=== PATIENT | female | born 1950 | race Caucasian/White ===

== ENCOUNTER → 2022-02-17 08:38 | Outpatient (BNVA) | payer MEDICARE, SELFPAY | PROVIDERS: PCP Internal Medicine; Visit Provider Internal Medicine Rheumatology | DX: Z87.39 Personal history of other diseases of the musculoskeletal system and connective tissue (principal); H81.10 Benign paroxysmal vertigo, unspecified ear; Z79.899 Other long term (current) drug therapy; H26.9 Unspecified cataract; J96.11 Chronic respiratory failure with hypoxia; M26.649 Arthritis of unspecified temporomandibular joint; Z86.16 Personal history of COVID-19 | CPT/HCPCS: 99204 ==

== ENCOUNTER 2022-02-17 10:28 | Outpatient (CLI) | payer MEDICARE, SELFPAY ==
--- NOTE | 2022-02-17 11:09 | XRR_ITS ---
PROCEDURE INFORMATION: Exam: XR Right Hip Exam date and time: 02/17/2022 11:36 AM Age: 71 years old Clinical indication: Pain and injury or trauma; Fall; Blunt trauma (contusions or hematomas); Right hip; Injury details: RT hip pain PT fell 2 months ago; Prior surgery; Surgery type: L spine; Additional info: Z79.899 - other prison (current) drug therapy TECHNIQUE: Imaging protocol: XR Right hip. Views: 1 view hip with pelvis when performed. COMPARISON: No relevant prior studies available. FINDINGS: Bones/joints: Negative for fracture. Joint space is preserved. Soft tissues: Unremarkable. XR/XR hip RT 2-3V wo/w pel* [id number] IMPRESSION: Unremarkable radiographs of the right hip.
[2022-02-17 11:34] LABS: Erythrocyte Sedimentation Rate 25 mm/hr (0-15)
[2022-02-17 11:59] LABS: C Reactive Protein 3.1 mg/L (0.0-4.9)
[2022-02-17 12:34] LABS: 25 Hydroxy Vitamin D > 100 ng/mL (30-100)
[2022-02-18 12:38] LABS: COMPLEMENT COMPONENT C3C 140 mg/dL (83-193); COMPLEMENT COMPONENT C4C 32 mg/dL (15-57)
[2022-02-18 13:07] LABS: CENTROMERE B ANTIBODY <1.0 NEG AI (<1.0 NEG); JO-1 ANTIBODY <1.0 NEG AI (<1.0 NEG); RNP ANTIBODY <1.0 NEG AI (<1.0 NEG); SCL-70 ANTIBODY <1.0 NEG AI (<1.0 NEG); SJOGREN'S ANTIBODY (SS-A) >8.0 POS AI (<1.0 NEG); SM ANTIBODY <1.0 NEG AI (<1.0 NEG); SS-B <1.0 NEG AI (<1.0 NEG)
[2022-02-18 15:12] LABS: Cyclic Citrullinated Peptide <16 UNITS
[2022-02-18 15:18] LABS: THYROID PEROXIDASE ANTIBODIES <1 IU/mL (<9); Thyroglobulin AB <1 IU/mL (< or = 1)
[2022-02-19 12:22] LABS: COMPLEMENT, TOTAL (CH50) >60 U/mL (31-60)
[2022-02-19 13:13] LABS: ANA PATTERN Nuclear, Speckled; ANA SCREEN, IFA POSITIVE (NEGATIVE)
[2022-02-19 13:57] LABS: ANCA Screen NEGATIVE (NEGATIVE)
[2022-02-19 15:03] LABS: DNA AB (DS) CRITHIDIA,IFA NEGATIVE (NEGATIVE)
== END 2022-02-17 10:29 | disposition home or self-care (01) ==
PROVIDERS: PCP Internal Medicine; Visit Provider Internal Medicine Rheumatology
DX: Z79.899 Other long term (current) drug therapy (principal); M19.90 Unspecified osteoarthritis, unspecified site; M35.3 Polymyalgia rheumatica; R76.8 Other specified abnormal immunological findings in serum; M25.559 Pain in unspecified hip
CPT/HCPCS: 36415; 73502; 82306; 83516; 85651; 86140; 86160; 86162; 86200; 86235; 86255; 86376; 86431; 86800

== ENCOUNTER → 2022-03-31 13:17 | Outpatient (BNVA) | payer MEDICARE, SELFPAY | PROVIDERS: PCP Internal Medicine; Referring Provider Internal Medicine Rheumatology; Visit Provider Nurse Practitioner | DX: R53.1 Weakness (principal); R26.89 Other abnormalities of gait and mobility; H02.402 Unspecified ptosis of left eyelid; R41.89 Other symptoms and signs involving cognitive functions and awareness | CPT/HCPCS: 99204 ==

== ENCOUNTER → 2022-05-05 09:36 | Outpatient (BNVA) | payer MEDICARE, SELFPAY | PROVIDERS: PCP Internal Medicine; Visit Provider Internal Medicine Rheumatology | DX: J84.9 Interstitial pulmonary disease, unspecified (principal); J96.11 Chronic respiratory failure with hypoxia; R76.8 Other specified abnormal immunological findings in serum; Z87.39 Personal history of other diseases of the musculoskeletal system and connective tissue; Z79.899 Other long term (current) drug therapy; Z86.16 Personal history of COVID-19 | CPT/HCPCS: 99214; 99215 ==

== ENCOUNTER → 2022-05-06 10:30 | Outpatient (BNVA) | payer MEDICARE, SELFPAY | PROVIDERS: PCP Internal Medicine; Visit Provider Specialist | DX: R41.0 Disorientation, unspecified (principal); R26.89 Other abnormalities of gait and mobility | CPT/HCPCS: 95816 ==

== ENCOUNTER 2022-05-19 08:03 | Outpatient (CLI) | payer MEDICARE, SELFPAY ==
--- NOTE | 2022-05-19 08:00 | MR_ITS ---
WS: [id number] MRI BRAIN WITH AND WITHOUT CONTRAST HISTORY: R26.9 - Unspecified abnormalities of gait and mobility COMPARISON: None available. TECHNIQUE: Multiplanar imaging performed through the brain with MultiHance 17 ml's IV. No acute infarcts are seen. Jules-white matter differentiation is well preserved. Moderate bilateral p eriventricular and subcortical white matter T2 and FLAIR signal hyperintensities. Additional bilatera l ischemic changes in the kostas. No large territory infarct. No hemorrhage. No susceptibility artifacts or prior lacunar infarcts. Ventricles and extra-axial spaces are normal. Clivus and pituitary gland are normal. Postcontrast images are negative for masses or vascular malformations. Small caliber RIGHT vertebral artery. Dural venous sinuses are normal. Paranasal sinuses: No air-fluid levels. Small polyps or mucous retention cysts in the maxillary sinus es. Mastoid air cells: Small LEFT mastoid air cell effusion. Calvarium and scalp: Normal. MR/MR head wo/w con [id number] IMPRESSION: 1. No acute infarct or enhancing mass. 2. Moderate small vessel ischemic disease in the periventricular subcortical w elda matter and also the kostas bilaterally.
[2022-05-19 10:19] LABS: Erythrocyte Sedimentation Rate 7 mm/hr (0-15)
[2022-05-19 10:50] LABS: Creatine Phosphokinase 37 U/L (26-192); Magnesium 2.3 mg/dL (1.7-2.3); Phosphorus 3.4 mg/dL (2.5-4.5); Potassium 3.9 mmol/L (3.5-5.1); Vitamin B12 489 pg/mL (232-1245)
[2022-05-24 00:33] LABS: Acetylcholine Receptor Binding <0.30 nmol/L
[2022-05-24 19:03] LABS: Acetylcholine Receptor Block <15 (<15)
[2022-05-27 17:47] LABS: Acetylcholine Recept Modulatin 10
[2022-05-27 22:44] LABS: Striated Muscle AB Screen NEGATIVE (NEGATIVE)
== END 2022-05-19 08:04 | disposition home or self-care (01) ==
PROVIDERS: Internal Medicine Rheumatology; PCP Internal Medicine; Visit Provider Nurse Practitioner
DX: R26.9 Unspecified abnormalities of gait and mobility (principal); R53.1 Weakness; Z79.899 Other long term (current) drug therapy; Z87.39 Personal history of other diseases of the musculoskeletal system and connective tissue
CPT/HCPCS: 70553; 82550; 82607; 83516; 83519; 83735; 84100; 84132; 85651; 86140; 86255

== ENCOUNTER → 2022-06-09 12:56 | Outpatient (BNVA) | payer MEDICARE, SELFPAY | PROVIDERS: PCP Radiology Neuroradiology; Visit Provider Internal Medicine Pulmonary Disease | DX: J84.9 Interstitial pulmonary disease, unspecified (principal); J96.11 Chronic respiratory failure with hypoxia; J98.4 Other disorders of lung; R76.8 Other specified abnormal immunological findings in serum; U09.9 Post COVID-19 condition, unspecified; Z87.39 Personal history of other diseases of the musculoskeletal system and connective tissue; Z99.81 Dependence on supplemental oxygen | CPT/HCPCS: 99204 ==

== ENCOUNTER → 2022-07-01 08:07 | Outpatient (BNVA) | payer MEDICARE, SELFPAY | PROVIDERS: PCP Radiology Neuroradiology; Referring Provider Nurse Practitioner; Visit Provider Specialist | DX: R41.0 Disorientation, unspecified (principal); R41.3 Other amnesia | CPT/HCPCS: 95812; 95816 ==

== ENCOUNTER → 2022-07-21 10:01 | Outpatient (BNVA) | payer MEDICARE, SELFPAY | PROVIDERS: PCP Radiology Neuroradiology; Visit Provider Nurse Practitioner | DX: R53.1 Weakness (principal); J84.9 Interstitial pulmonary disease, unspecified; M54.9 Dorsalgia, unspecified; Z99.81 Dependence on supplemental oxygen | CPT/HCPCS: 99213 ==

== ENCOUNTER → 2022-08-11 13:25 | Outpatient (BNVA) | payer MEDICARE, SELFPAY | PROVIDERS: PCP Radiology Neuroradiology; Visit Provider Internal Medicine Pulmonary Disease | DX: U09.9 Post COVID-19 condition, unspecified; J98.4 Other disorders of lung; J84.9 Interstitial pulmonary disease, unspecified; R76.8 Other specified abnormal immunological findings in serum; J96.11 Chronic respiratory failure with hypoxia; Z87.39 Personal history of other diseases of the musculoskeletal system and connective tissue; Z99.81 Dependence on supplemental oxygen | CPT/HCPCS: 99214 ==

== ENCOUNTER → 2022-09-01 10:37 | Outpatient (BNVA) | payer MEDICARE, SELFPAY | PROVIDERS: PCP Radiology Neuroradiology; Visit Provider Internal Medicine Rheumatology | DX: R76.8 Other specified abnormal immunological findings in serum (principal); J84.9 Interstitial pulmonary disease, unspecified; J96.11 Chronic respiratory failure with hypoxia; J98.4 Other disorders of lung; Z86.16 Personal history of COVID-19; M25.512 Pain in left shoulder | CPT/HCPCS: 99214 ==

== ENCOUNTER 2022-09-04 16:58 | Outpatient (CLI) | payer MEDICARE, SELFPAY ==
--- NOTE | 2022-09-04 17:00 | CT_ITS ---
WS: [id number] CT CHEST TECHNIQUE: Noncontrast CT of the chest with coronal and sagittal reformatted images. CLINICAL INFORMATION: HRCT for interstitial lung disease COMPARISON: CTA chest February 01, 2022 DLP: 2690.[address] scans at [facility] use at least one of these dose optimization techniques: automated e xposure control; mA and/or kV adjustment per patient size (includes targeted exams where dose is matc hed to clinical indication); or iterative reconstruction. FINDINGS: Moderate chronic emphysematous changes. No acute pulmonary infiltrates. No focal pneumonia or pleural fluid.Interstitial reticular opacities with mild subpleural honeycombing. Mild traction bronchiectas is. Mild air trapping on the expiratory images. A few calcified granulomas. Cardiomegaly. Normal caliber thoracic aorta. Mild aortic calcification. A few prominent AP window and peribronchial lymph nodes nonspecific but likely reactive. No axillary lymphadenopathy. Partially visualized LEFT renal cyst measuring 5.7 CM. Fatty atrophy of the pancreas. Adrenal glands are normal. Small peripher ally calcified splenic artery aneurysm measuring 10 mm. Small esophageal hiatal hernia. No other susp icious findings. CT/CT chest wo con [id number] IMPRESSION: 1. Bilateral reticular opacities with mild/early subpleural honeycombing and m ild traction bronchiectasis can be seen with idiopathic pulmonary fibrosis in a ppropriate clinical setting. 2. Mild air trapping on expiratory images. 3. A few slightly prominent AP window and peribronchial lymph nodes likely ammon ctive. 4. Small esophageal hiatal hernia. 5. 10 mm peripherally calcified splenic artery aneurysm unchanged since February 01, 2022. 6. No other suspicious findings.
== END 2022-09-04 16:59 | disposition home or self-care (01) ==
LOC: RAD 16:59
PROVIDERS: PCP Radiology Neuroradiology; Visit Provider Internal Medicine Pulmonary Disease
DX: J84.9 Interstitial pulmonary disease, unspecified (principal)
CPT/HCPCS: 71250

== ENCOUNTER 2022-09-24 13:40 | Outpatient (CLI) | payer MEDICARE, SELFPAY | END 2022-09-24 13:41 | disposition home or self-care (01) | LOC: RT 13:43 | PROVIDERS: PCP Radiology Neuroradiology; Visit Provider Internal Medicine Pulmonary Disease | DX: J84.9 Interstitial pulmonary disease, unspecified (principal); J96.11 Chronic respiratory failure with hypoxia | CPT/HCPCS: 94060; 94618; 94726; 94729; J7611 ==

== ENCOUNTER 2022-10-09 12:00 | Outpatient (CLI) | payer MEDICARE, SELFPAY | END 2022-10-09 12:01 | disposition home or self-care (01) | LOC: SLEEP 10-13 07:43 | PROVIDERS: PCP Radiology Neuroradiology; Visit Provider Internal Medicine Pulmonary Disease | DX: J84.9 Interstitial pulmonary disease, unspecified (principal); J96.11 Chronic respiratory failure with hypoxia | CPT/HCPCS: 94762 ==

== ENCOUNTER 2023-01-17 13:19 | Observation (INO) | payer MEDICARE, SELFPAY ==
[2023-01-17] VITALS (12 sets, daily range): BP systolic 129–187; BP diastolic 77–109; PULSE 73–85; RESP 15–18; TEMP 36.1–36.8; O2SAT 94–100
--- NOTE | 2023-01-17 13:49 | CTR_ITS ---
PROCEDURE INFORMATION: Exam: CT Abdomen And Pelvis Without Contrast Exam date and time: 01/17/2023 2:16 PM Age: 72 years old Clinical indication: Abdominal pain; Flank; Right; Prior surgery; Surgery type: Hyster, lumbar; Additional info: Eval stone TECHNIQUE: Imaging protocol: Computed tomography of the abdomen and pelvis without contrast. Radiation optimization: All CT scans at this facility use at least one of these dose optimization techniques: automated exposure control; mA and/or kV adjustment per patient size (includes targeted exams where dose is matched to clinical indication); or iterative reconstruction. Other protocol: This patient has received 2 known CTs and 0 known cardiac nuclear medicine studies in the 12 months prior to the current study. COMPARISON: CR XR hip RT 2-3V wo/w pel* [id number] 02/17/2022 11:36 AM RADIATION DOSE METRICS: Total DLP (mGy-cm): 577.93 FINDINGS: Liver: Normal. No mass. Gallbladder and bile ducts: Normal. No calcified stones. No ductal dilation. Pancreas: Normal. No ductal dilation. Spleen: Normal. No splenomegaly. Adrenal glands: Normal. No mass. Kidneys and ureters: There are cysts with benign features in the left kidney the larger of which measures 5.6 cm in the transverse dimension. Follow-up is not necessary. 9 mm calculus in the lower pole the left kidney. There is a 4 mm x 5 mm calculus in the proximal left ureter.Mild to moderate hydronephrosis/hydroureter and associated inflammatory stranding. There are punctate nonobstructing right renal calculi. Stomach and bowel: There is diverticulosis of the colon without evidence of diverticulitis. Appendix: A normal appendix is identified. Intraperitoneal space: Unremarkable. No free air. No significant fluid collection. Vasculature: Unremarkable. No abdominal aortic aneurysm. Lymph nodes: Unremarkable. No enlarged lymph nodes. Urinary bladder: Unremarkable as visualized. Reproductive: The uterus is not visualized, consistent with hysterectomy. Bones/joints: Unremarkable. No acute fracture. Soft tissues: Unremarkable. CT/CT kidney stone [id number] IMPRESSION: 1. There is a 4 mm x 5 mm calculus in the proximal left ureter with obstructive changes as described above. 2. 9 mm calculus in a lower pole calyx of the left kidney.
--- NOTE | 2023-01-17 13:49 | PC.NURSE ---
pt reports left flank pain x7 days but severe pain began 3 days ago. describes pain as stabbing or a muscle spasm and intermittent. Denies symptoms, was told she was told her had bacteria and blood in her urine. Was seen [facility] 01/14. Reports they did the urine sample but did not do any imaging. pt reports hx of kidney stones
--- NOTE | 2023-01-17 13:52 | ED_ITS ---
HPI - Back Pain/Injury General: Chief Complaint: Back Pain/Injury Stated Complaint: possible kidney stone Time Seen by Provider: 01/17/23 13:41 History of Present Illness: 72-year-old female past medical history of recurrent urinary tract infections, COPD, and remote history of nephrolithiasis on the left presenting to the emergency department complaining of left flank pain. Patient states she was treated 1 week ago in [place] for urinary tract infection with oral penicillin after her urine indicated urinary tract affection. She has been taking medication for symptoms have not been improving. She presents today with worsened flank pain that is squeezing in nature, radiating to her groin and lower area above her left back. Has not taken anything to improve her symptoms. No positions improve her symptoms. Denies fevers, sweats, chills. Associated symptoms: Reports nausea; Deny chills, fever(s) or vomiting Review of Systems General: Reports: 10 or more systems reviewed and unremarkable except in HPI and below Const: Denies: fever(s) or chills Eyes: Denies: change in vision or blurry vision ENMT: Denies: throat pain or uvular edema Card: Denies: chest pain or palpitations Resp: Denies: dyspnea or productive cough GI: Reports: nausea; Denies: vomiting or constipation : Reports: flank pain and urinary frequency Musc: Reports: back pain; Denies: neck pain Skin/Breast: Denies: rash or pruritus Neuro: Denies: headache(s) Psych: Denies: anxiety or depression PFSH ED PFSH: Medical History Acute anxiety Balance disorder BPPV (benign paroxysmal positional vertigo) History of COPD History of ear infections as a child Hx of polymyalgia rheumatica Hypertension Hypoxemic respiratory failure, chronic Hx of Covid 19 Hypoxemic respiratory failure, chronic ILD (interstitial lung disease) likely secondary her COVID 19 infection? 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 Transient confusion Urolithiasis Vasculitis Visual disturbance Surgical History History of hysterectomy with bilateral oophorectomy Previous back surgery x2 Family History Sister Lung disease 2021 ILD Father Cancer Denies family history of Rheumatoid arthritis Lupus Social History Smoking and tobacco status: never smoked Alcohol intake: never Physical Exam Const: COMMON NORMALS: no acute distress EXAM LIMITATIONS: no altered mental status and no behavioral limitations HENMT: COMMON NORMALS: normocephalic and atraumatic HEAD & SCALP: normocephalic and atraumatic THROAT: no uvular edema Eye: COMMON NORMALS: Equal, round and reactive pupils present and EOMs intact bilaterally PUPIL: Yes Equal, round and reactive pupils present Neck/C-Spine: COMMON NORMALS: full ROM and supple Chest: COMMONS NORMALS: normal inspection of the chest and normal palpation of entire chest wall Resp: COMMON NORMALS: normal respiratory effort, No retractions and No use of accessory muscles Cardio: COMMON NORMALS: regular rate and regular rhythm RATE: regular rate RHYTHM: regular rhythm GI: COMMON NORMALS: Normal to inspection, nondistended, normoactive bowel sounds present and Soft to palpation PALPATION: Yes Soft to palpation and Yes Tenderness to palpation present (GI) Details: other (Suprapubic) : COMMON NORMALS: No no CVA tenderness BLADDER/KIDNEY EXAM: No no CVA tenderness and Yes CVA tenderness on the left Back/Pelvis: COMMON NORMALS: negative for no CVA tenderness GENERAL BACK: Yes CVA tenderness Extremity: COMMON NORMALS: normal to inspection and full ROM Course Vital Signs: Vital signs: Vital Signs Temperature 98.2 F 01/17/23 13:25 Pulse Rate 73 01/17/23 14:32 Respiratory Rate 16 01/17/23 14:32 Blood Pressure 187/109 01/17/23 14:32 Pulse Oximetry 95 01/17/23 14:32 Oxygen Delivery Me thod 01/17/23 14:32 MDM - Back Pain/Injury Medical Decision Making 72-year-old female with progressive left flank pain in the setting of penicillin treatment for urinary tract infection in the last week. Vitals nonactionable without tachycardia or hypotension. Examination suggesting CVA tenderness with possible nephrolithiasis and presumptive septic stone. Patient has been taking antibiotics in the outpatient setting likely obscuring any urinary results will be received. Gave fluids intravenously and ceftriaxone antibiotic. Pain controlled with Toradol. CT demonstrating 2 large stones and with history of urinary tract infection will aim to admit the patient for expedited stenting. Dr. Salazar, on-call urologist, consulted and will present to the emergency department for evaluation of the patient. 1520hrs. Dr. Salazar will admit the patient after surgery in the operating room. Labs 01/17/23 14:11 01/17/23 15:17 Radiology Impressions Abdomen/Pelvis CT 01/17/23 13:49 IMPRESSION: 1. There is a 4 mm x 5 mm calculus in the proximal left ureter with obstructive changes as described above. 2. 9 mm calculus in a lower pole calyx of the left kidney. Laboratory Results WBC 9.6 10^3/uL (4.0-10.0) 01/17/23 14:11 RBC 4.71 10^6/uL (4.1-5.3) 01/17/23 14:11 Hgb 13.7 g/dL (11.5-15.3) 01/17/23 14:11 Hct 42.9 % (37.0-47.0) 01/17/23 14:11 MCV 91.1 fl (81-99) 01/17/23 14:11 MCH 29.1 pg (28.0-34.0) 01/17/23 14:11 MCHC 31.9 g/dL (30.0-36.0) 01/17/23 14:11 RDW 12.7 % (12.1-15.1) 01/17/23 14:11 Plt Count 259 10^3/cmm (130-400) 01/17/23 14:11 MPV 9.9 fL (7.4-10.4) 01/17/23 14:11 Neut % (Auto) 74.3 % 01/17/23 14:11 Lymph % (Auto) 16.4 % 01/17/23 14:11 [place] % (Auto) 7.6 % 01/17/23 14:11 Eos % (Auto) 1.1 % 01/17/23 14:11 Baso % (Auto) 0.4 % 01/17/23 14:11 Neut # (Auto) 7.14 10^3/uL (1.8-7.7) 01/17/23 14:11 Lymph # (Auto) 1.6 10^3/uL (0.8-4.8) 01/17/23 14:11 [place] # (Auto) 0.7 10^3/uL (0.2-0.9) 01/17/23 14:11 Eos # (Auto) 0.1 10^3/uL (0.0-0.8) 01/17/23 14:11 Baso # (Auto) 0.0 10^3/uL (0.0-0.1) 01/17/23 14:11 Nucleated RBC % (auto) 0 % 01/17/23 14:11 Nucleated RBCs # 0.0 /100WBC 01/17/23 14:11 Sodium 132 mmol/L (136-145) L 01/17/23 15:17 Potassium 3.1 mmol/L (3.5-5.1) L 01/17/23 15:17 Chloride 91 mmol/L (98-107) L 01/17/23 15:17 Carbon Dioxide 29 mmol/L (22-29) 01/17/23 15:17 Anion Gap 15.1 (5-19) 01/17/23 15:17 BUN 12 mg/dL (8-23) 01/17/23 15:17 Creatinine 1.0 mg/dL (0.5-0.9) H 01/17/23 15:17 GFR Calculation Not Reportable 01/17/23 15:17 Glucose 128 mg/dL (65-115) H 01/17/23 15:17 Calculated Osmolality 275 mOsm/kg (285-295) L 01/17/23 15:17 Lactate 2.8 mmol/L (0.5-2.2) H 01/17/23 14:11 Calcium 9.4 mg/dL (8.5-10.5) 01/17/23 15:17 Total Bilirubin 0.5 mg/dL (0.15-1.2) 01/17/23 15:17 AST 14 U/L (0-32) 01/17/23 15:17 ALT 8 U/L (0-33) 01/17/23 15:17 Alkaline Phosphatase 101 U/L (35-105) 01/17/23 15:17 Total Protein 7.3 g/dL (6.6-8.7) 01/17/23 15:17 Albumin 3.9 g/dL (3.5-5.2) 01/17/23 15:17 Globulin 3.4 g/dL (1.3-4.6) 01/17/23 15:17 Lipase 14 U/L (13-60) 01/17/23 15:17 Urine Color Straw (Yellow) 01/17/23 14:49 Urine Appearance Clear (CLEAR) 01/17/23 14:49 Urine pH 6.5 (5-7) 01/17/23 14:49 Ur Specific [place] 1.005 (1.005-1.030) 01/17/23 14:49 Urine Protein Neg (Negative) 01/17/23 14:49 Urine Glucose (UA) Norm (Normal) 01/17/23 14:49 Urine Ketones Negative (Negative) 01/17/23 14:49 Urine Blood 3+ (Negative) H 01/17/23 14:49 Urine Nitrate Negative (Negative) 01/17/23 14:49 Urine Bilirubin Neg (Negative) 01/17/23 14:49 Urine Urobilinogen Norm mg/dL (Negative) 01/17/23 14:49 Ur Leukocyte Esterase Negative (Negative) 01/17/23 14:49 Urine RBC 0-4 /hpf (0-2) H 01/17/23 14:49 Urine WBC 0-4 /hpf (0-5) H 01/17/23 14:49 Ur Squamous Epith Cells Rare /hpf (0-5) 01/17/23 14:49 Amorphous Sediment Not Reportable 01/17/23 14:49 Urine Bacteria Trace /hpf (NONE) 01/17/23 14:49 Discharge Plan Discharge Clinical Impression: Recurrent nephrolithiasis, Urinary tract infection Condition: Stable Coding Level of Care Code ED Regulator Operator for Seamus Ferrer
[2023-01-17 14:24] LABS: Basophils % 0.4 %; Eosinophils # 0.1 10^3/uL (0.0-0.8); Eosinophils % 1.1 %; Hematocrit 42.9 % (37.0-47.0); Hemoglobin 13.7 g/dL (11.5-15.3); Lymphocytes # 1.6 10^3/uL (0.8-4.8); Lymphocytes % 16.4 %; Mean Corpuscular HGB Conc 31.9 g/dL (30.0-36.0); Mean Corpuscular Hemoglobin 29.1 pg (28.0-34.0); Mean Corpuscular Volume 91.1 fl (81-99); Mean Platelet Volume 9.9 fL (7.4-10.4); Monocytes # 0.7 10^3/uL (0.2-0.9); Monocytes % 7.6 %; Neutrophils # 7.14 10^3/uL (1.8-7.7); Neutrophils % 74.3 %; Nucleated Red Blood Cells % 0 %; Platelet Count 259 10^3/cmm (130-400); Red Blood Count 4.71 10^6/uL (4.1-5.3); Red Cell Distribution Width 12.7 % (12.1-15.1); White Blood Count 9.6 10^3/uL (4.0-10.0)
[2023-01-17] MEDS: ketorolac 30 mg/mL INJ 15 MG IVP (14:26)
[2023-01-17] MEDS: lactated ringers 1,000 ML 999 ML IV (14:26)
[2023-01-17] MEDS: ondansetron 2 mg/ML SDV 2 mL 8 MG IVP (14:28)
[2023-01-17 14:46] LABS: Lactate (Lactic Acid level) 2.8 mmol/L (0.5-2.2)
[2023-01-17] MEDS: sodium chloride 0.9% 1,000 ML 999 ML IV (15:32)
[2023-01-17] MEDS: cefTRIAXone 1,000 MG in sodium chloride 0.9% (plus) 50 ML 100 MG IV (15:33)
[2023-01-17 15:48] LABS: Alanine Aminotransferase 8 U/L (0-33); Albumin Level 3.9 g/dL (3.5-5.2); Alkaline Phosphatase 101 U/L (35-105); Anion Gap 15.1 (5-19); Aspartate Amino Transferase 14 U/L (0-32); Blood Urea Nitrogen 12 mg/dL (8-23); Calcium 9.4 mg/dL (8.5-10.5); Carbon Dioxide 29 mmol/L (22-29); Chloride 91 mmol/L (98-107); Globulin 3.4 g/dL (1.3-4.6); Glucose 128 mg/dL (65-115); Lipase 14 U/L (13-60); Osmolality Calculated 275 mOsm/kg (285-295); Potassium 3.1 mmol/L (3.5-5.1); Sodium 132 mmol/L (136-145); Total Bilirubin 0.5 mg/dL (0.15-1.2); Total Protein 7.3 g/dL (6.6-8.7)
[2023-01-17 15:51] LABS: Add Urine Microscopic? YES; Bacteria Urine TRACE /hpf; Bilirubin Urine Neg (Negative); Blood Urine 3+ (Negative); Glucose Urine UA Norm (Normal); Ketones Urine Negative (Negative); Leukocyte Esterase Urine Negative (Negative); Nitrate Urine Negative (Negative); Protein Urine Neg (Negative); RBC Urine 0-4 /hpf (0-2); Specific Gravity, Urine 1.005 (1.005-1.030); Squamous Epithelial Cell Urine RARE /hpf (0-5); Urine Appearance Clear (CLEAR); Urine Color Straw (Yellow); Urobilinogen Urine Norm (Negative); WBC Urine 0-4 /hpf (0-5); pH Urine 6.5 (5-7)
[2023-01-17 15:52] LABS: Add Urine Culture? No
--- NOTE | 2023-01-17 16:05 | P.HP_ITS ---
Providers/Chief Complaint Admitting Physician: Martin Primary Care Provider: Ray Alvarez MD Chief Complaint: Left ureteral stone with UTI History of Present Illness Clarisa Stanley is a 72 year old female who I evaluated for the first time today at the request of the emergency department for symptomatic left proximal ureteral stone and concern for possible UTI. About a week ago she started having typical left renal colicky symptoms and at times it was quite severe. She has made 1 trip to the emergency department down in [facility] and was treated with antibiotics. I do not think there was any imaging done at that time. She presented to our emergency room today with increasing symptoms, nausea, vomiting, and some chills. Urinalysis pending at the time but her lactate was elevated and a CT scan showed about a 5 mm obstructing left proximal ureteral stone. Stone had obviously not migrated distally much since it became symptomatic a week ago. She also has a history of RECURRENT UTIs and her daughter states that she thinks she probably has a UTI all the time. I did review the CT scan. She has a large left calyceal stone that is nonobstructing and the obstructing 5 mm stone in the left proximal ureter with typical perirenal stranding etc. It was recommended that she go to the operating room today for cystoscopy and left ureteral stent placement. Reviewed delayed attempt at definitive therapy of the stone after infection issues have been resolved. We reviewed the possibility of inability to obtain retrograde access with a wire and if that was in fact the case she would need to be transferred to an institution with in terventional radiology for percutaneous nephrostomy tube possible antegrade ureteral stent placement. We will request consultation with hospitalist service for medical management while inpatient. Review of Systems Const: Reports: chills, fatigue and malaise Eyes: Denies: change in vision ENMT: Denies: odynophagia or hoarseness Card: Denies: chest pain or palpitations Resp: Denies: dyspnea or productive cough GI: Reports: abdominal pain, nausea and vomiting : Reports: flank pain, urinary frequency and urinary urgency Musc: Reports: back pain; Denies: joint redness Skin/Breast: Denies: rash Neuro: Denies: behavioral changes, Slurred speech present or seizure-like activity Psych: Denies: anxiety or depression Endo: Denies: flushing Zia/Lymph: Denies: easy bruising or easy bleeding All/Imm: Denies: urticaria or acute wheezing Medications/Allergies Home Medications Medication Instructions Recorded Confirmed Last Taken Type albuterol sulfate 90 mcg/actuation 2 puff inhalation Q6H PRN 02/13/22 09/01/22 Unknown History aerosol inhaler (ProAir HFA) alprazolam 0.5 mg tablet (Xanax) 0.5 mg PO DAILY 02/13/22 09/01/22 Unknown History celecoxib 200 mg capsule (Celebrex) 200 mg PO DAILY 02/13/22 09/01/22 Unknown History gabapentin 300 mg capsule 300 mg PO DAILY 02/13/22 09/01/22 Unknown History hydrocodone 7.5 mg-acetaminophen 1 tab PO BID PRN 02/13/22 09/01/22 Unknown History 325 mg tablet metoprolol succinate 50 mg 50 mg PO DAILY 02/17/22 09/01/22 Unknown History tablet,extended release 24 hr (Toprol XL) nitroglycerin 0.4 mg sublingual 0.4 mg sublingual Q5M PRN 02/17/22 09/01/22 Unknown History tablet omeprazole 20 mg capsule,delayed 20 mg PO DAILY 02/17/22 09/01/22 Unknown History release amlodipine 5 mg tablet 10 mg PO DAILY 06/09/22 09/01/22 Unknown History duloxetine 20 mg capsule,delayed 40 mg PO DAILY 06/09/22 09/01/22 Unknown History release trazodone 50 mg tablet 50 mg PO DAILY 06/09/22 09/01/22 Unknown History Allergies Allergy/AdvReac Type Severity Reaction Status Date / Time ciprofloxacin [From Cipro] Allergy Intermediate ALGY-Joint Verified 08/11/22 13:35 Pain Iodinated Contrast Media Allergy Intermediate ALGY-Rash Verified 08/11/22 13:35 Sulfa (Sulfonamide Allergy Intermediate ALGY-Hives Verified 08/11/22 13:35 Antibiotics) PFSH Acute PFSH: Medical History Acute anxiety Balance disorder BPPV (benign paroxysmal positional vertigo) History of COPD History of ear infections as a child Hx of polymyalgia rheumatica Hypertension Hypoxemic respiratory failure, chronic Hx of Covid 19 Hypoxemic respiratory failure, chronic ILD (interstitial lung disease) likely secondary her COVID 19 infection? 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 Transient confusion Urolithiasis Vasculitis Visual disturbance Surgical History History of hysterectomy with bilateral oophorectomy Previous back surgery x2 Family History Sister Lung disease 2021 ILD Father Cancer Denies family history of Rheumatoid arthritis Lupus Social History Smoking and tobacco status: never smoked Alcohol intake: never Vitals/I&O/Wt Last Vital Signs Temp 98.2 F 01/17/23 13:25 Pulse 73 01/17/23 14:32 Resp 16 01/17/23 14:32 BP 187/109 01/17/23 14:32 Pulse Ox 95 01/17/23 14:32 O2 Del Method 01/17/23 14:32 01/17/23 01/17/23 01/17/23 06:59 14:59 22:59 Intake Total 566.1 / 566.1 Balance 566.1 / 566.1 Weight last 48 hrs Weight 170 lb Physical Exam Const: COMMON NORMALS: no acute distress, alert and well nourished GENERAL APPEARANCE: well kempt and well developed ORIENTATION/CONSCIOUSNESS: not confused HENMT: COMMON NORMALS: normocephalic HEAD & SCALP: normal to inspection and normocephalic Eye: COMMON NORMALS: conjunctivae normal and no scleral icterus CONJUNCTIV A: Yes conjunctivae normal Neck/C-Spine: GENERAL: Yes normal visual inspection Lymph: LYMPHATIC: no lymphadenopathy noted Chest: OTHER: Normal chest movement Resp: COMMON NORMALS: normal respiratory effort EFFORT & INSPECTION: Yes able to speak in complete sentences, No labored and No Actively coughing Cardio: COMMON NORMALS: regular rate and regular rhythm GI: COMMON NORMALS: no masses OTHER: Tender left upper quadrant left CVA : OTHER: Bladder nondistended Back/Pelvis: OTHER: Left CVA tenderness Extremity: COMMON NORMALS: no clubbing, cyanosis or edema Neuro: COMMON NORMALS: no focal motor deficits SENSORIUM/ORIENTATION: Yes alert Psych: COMMON NORMALS: mental status grossly normal APPEARANCE: Yes grossly normal and Yes well kempt ATTITUDE: Yes calm and Yes engaged Skin: COMMON NORMALS: no rashes or lesions noted and no jaundice GENERAL SKIN EXAM: no rashes or lesions noted Data 01/17/23 14:11 01/17/23 15:17 A&P Assessment and plan (1) Left ureteral calculus: 5 mm stone obstructing left proximal ureter (2) Urinary tract infection: Symptoms suspicious for CHRONIC CYSTITIS (3) Urolithiasis: Large stone in the left kidney Plan 1. Because of concern with elevated lactate, history worrisome for CHRONIC CYSTITIS, and subjective chills at home along with obstructing stone I recommended a stent placement today emergently. 2. She has been started on ROCEPHIN. We will continue IV antibiotics. 3. Based on her multiple medical problems I have recommended consultation with medicine/hospitalist department for medical management postop. 4. We will make plans for delayed treatment of the stone pending her clinical status postoperatively. Have reviewed ESWL versus ureteroscopy 5. Informed consent was obtained after detailed explanation of all the above issues. The procedure was explained in detail including benefits risk potential complications and alternatives. We did discuss the possibility of need for interventional radiology if access cannot be obtained from a retrograde approach. Attestations Medical Necessity Statement*: Refractory symptoms poorly controlled with oral narcotics related to the stone. Concern for infectious complications Coding Level of Care Code Acute Code for [facility] Fwd Diagnoses Left ureteral calculus N20.1 Urinary tract infection N39.0 Urolithiasis N20.9
--- NOTE | 2023-01-17 16:37 | P.ANESASSM_ITS ---
Pre-Anesthetic Assessment Height/Weight: Height 1.65 m Weight 77.111 kg Temp Pulse Resp BP Pulse Ox O2 Del Method 98.2 F 73 16 187/109 95 01/17/23 13:25 01/17/23 14:32 01/17/23 14:32 01/17/23 14:32 01/17/23 14:32 01/17/23 14:32 Preop Diagnosis: ureteral calculus Operation Date: 01/17/23 17:00 Proposed Procedures p Ureteral Stent Placement(Left) - Gavin Salazar MD Familial anesthetic complications: none Was Beta Otto taken within 24 hours: Yes (takes it at night typically.) Last intake: 1200 crackers and sip of cola Social No alcohol and No tobacco Exam alert, oriented x 3, clear to auscultation bilaterally and regular rate & rhythm Airway Submandibular: within normal limits Cervical ROM: within normal limits Mallampati: Class II Dentition: false Pulmonary Chronic Obstructive Pulmonary Disease (restrictive lung disease related to COVID (08/2020)) CV/HEM Hypertension Urinary Tract Infection calculus Hepatic None reported GI Gastroesophageal Reflux Disease esophageal spasms. Metabolic None reported Musc/skel Lower Back Pain and Osteoarthritis/DJD left ring finger has cast -broken Neuropsych BPPV Anesthetic Plan ASA status: 3 Anesthesia: General Medications/Allergies Home Medications Medication Instructions Recorded Confirmed Last Taken Type albuterol sulfate 90 mcg/actuation 2 puff inhalation Q6H PRN 02/13/22 09/01/22 Unknown History aerosol inhaler (ProAir HFA) alprazolam 0.5 mg tablet (Xanax) 0.5 mg PO DAILY 02/13/22 09/01/22 Unknown History celecoxib 200 mg capsule (Celebrex) 200 mg PO DAILY 02/13/22 09/01/22 Unknown History gabapentin 300 mg capsule 300 mg PO DAILY 02/13/22 09/01/22 Unknown History hydrocodone 7.5 mg-acetaminophen 1 tab PO BID PRN 02/13/22 09/01/22 Unknown History 325 mg tablet metoprolol succinate 50 mg 50 mg PO DAILY 02/17/22 09/01/22 Unknown History tablet,extended release 24 hr (Toprol XL) nitroglycerin 0.4 mg sublingual 0.4 mg sublingual Q5M PRN 02/17/22 09/01/22 Un known History tablet omeprazole 20 mg capsule,delayed 20 mg PO DAILY 02/17/22 09/01/22 Unknown History release amlodipine 5 mg tablet 10 mg PO DAILY 06/09/22 09/01/22 Unknown History duloxetine 20 mg capsule,delayed 40 mg PO DAILY 06/09/22 09/01/22 Unknown History release trazodone 50 mg tablet 50 mg PO DAILY 06/09/22 09/01/22 Unknown History amoxicillin 500 mg capsule 500 mg PO TID 01/17/23 01/17/23 01/17/23 History fludrocortisone 0.1 mg tablet 0.1 mg PO DAILY 01/17/23 01/17/23 01/17/23 History Allergies Allergy/AdvReac Type Severity Reaction Status Date / Time ciprofloxacin [From Cipro] Allergy Intermediate ALGY-Joint Verified 08/11/22 13:35 Pain Iodinated Contrast Media Allergy Intermediate ALGY-Rash Verified 08/11/22 13:35 Sulfa (Sulfonamide Allergy Intermediate ALGY-Hives Verified 08/11/22 13:35 Antibiotics) Current Medications Generic Name Dose Route Start Last Admin Trade Name Freq PRN Reason Stop Dose Admin Sodium Chloride 1,000 mls @ 999 mls/hr 01/17/23 15:15 01/17/23 15:32 Sodium Chloride 0.9% IV 999 mls/hr .Q1H1M ALENA Administration PFSH Anesthesia Medical History (Updated 01/17/23 @ 17:05 by Palak Washburn MD) Acute anxiety Balance disorder BPPV (benign paroxysmal positional vertigo) History of COPD History of ear infections as a child Hx of polymyalgia rheumatica Hypertension Hypoxemic respiratory failure, chronic Hx of Covid 19 Hypoxemic respiratory failure, chronic ILD (interstitial lung disease) likely secondary her COVID 19 infection? 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 Transient confusion Urolithiasis Vasculitis Visual disturbance Surgical History History of hysterectomy with bilateral oophorectomy Previous back surgery x2 Family History Sister Lung disease 2021 ILD Father Cancer Denies family history of Rheumatoid arthritis Lupus Social History Smoking and tobacco status: never smoked Alcohol intake: never Data Anesthesia 01/17/23 14:11 01/17/23 15:17 Short CBC 01/17/23 Range/Units 14:11 WBC 9.6 (4.0-10.0) 10^3/uL Hgb 13.7 (11.5-15.3) g/dL Hct 42.9 (37.0-47.0) % MCV 91.1 (81-99) fl Plt Count 259 (130-400) 10^3/cmm Neut % (Auto) 74.3 % Neut # (Auto) 7.14 (1.8-7.7) 10^3/uL BMP 01/17/23 01/17/23 14:11 15:17 Sodium Cancelled 132 L Potassium Cancelled 3.1 L Chloride Cancelled 91 L Carbon Dioxide Cancelled 29 BUN Cancelled 12 Creatinine Cancelled 1.0 H Glucose Cancelled 128 H Calcium Cancelled 9.4 Liver Function 01/17/23 01/17/23 Range/Units 14:11 15:17 Total Bilirubin Cancelled 0.5 AST Cancelled 14 ALT Cancelled 8 Alkaline Phosphatase Cancelled 101 Albumin Cancelled 3.9 Urine 01/17/23 Range/Units 14:49 Urine Color Straw (Yellow) Urine Appearance Clear (CLEAR) Urine pH 6.5 (5-7) Ur Specific Flushing 1.005 (1.005-1.030) Urine Protein Neg (Negative) Urine Glucose (UA) Norm (Normal) Urine Ketones Negative (Negative) Urine Nitrate Negative (Negative) Urine Bilirubin Neg (Negative) Ur Leukocyte Esterase Negative (Negative) Urine RBC 0-4 H (0-2) /hpf Urine WBC 0-4 H (0-5) /hpf Cardiac Studies: No Data to Display
--- NOTE | 2023-01-17 16:50 | PM.CONSULT ---
Providers/Reason For Consult Consulting Physician/Specialty*: Internal Medicine/ Palak Washburn MD Reason for Consult*: Medical management Attending Physician: Gavin Salazar MD Primary Care Provider: Ray Alvarez MD History of Present Illness History of Present Illness Clarisa Stanley is a 72 year old female with past medical history of anxiety, BPPV, COPD, polymyalgia rheumatica, hypertension, interstitial lung disease, vasculitis/transient confusion, kidney stone in her 20s presented to the hospital today for complaint of left flank pain. On Thursday she went to the ER in [place] and was diagnosed with a UTI and placed on oral penicillin 3 times daily. She says for the last 3 days she has been taking this medication but not feeling better. Pain is radiating to her groin and lower area in her left back. Nothing is really making it better. In the ER on arrival blood pressure 187/109, respirate 16, pulse 73, temperature 98.2. CT abdomen pelvis was done which showed 4 x 5 mm calculus in proximal left ureter with obstructive changes as described above. 90 mm calculus in lower pole calyx of left kidney also present. She was seen by Dr. Salazar in the ER and plan is to take her to the OR for a stent placement. Hospitalist consulted for medical management of comorbid conditions. Patient states that for hypertension she takes amlodipine once a day however started to have some dizziness and therefore it was held about a month ago and she was placed on fludrocortisone 0.1 mg daily. She says that recently last 2 to 3 days her blood pressure was staying elevated and therefore she restarted her amlodipine on her own but was also taking the fludrocortisone at the same time. She takes trazodone 50 at nighttime and Celebrex 200 daily for back pain that is chronic. She also has Xanax as needed but only has to use it maybe 3 times a month. This is for anxiety. Patient on duloxetine 20 mg twice daily. Gabapentin 300 once daily as well but has not taken it in some time as she ran out of the prescription. Her primary care doctor is Dr. Esquivel at [facility]. She is also on Toprol 50 daily. Patient uses supplemental oxygen at nighttime 2 L. Patient has had PFTs done as an outpatient since 2020 and 2021. Pulmonology suspects Sjogren's related interstitial lung disease. Patient also had a cardiac cath done recently at [facility] on 04/15/2022 which showed normal coronary arteries and dyspnea symptoms that are nonischemic in nature. Patient was encouraged to stay up-to-date with flu shot and pneumonia vaccines. Allergy panel was sent off. She is to see pulmonology again in 6 months to have a high-resolution CT done. If there is gradual worsening plan by pulmonology is to proceed with lung biopsy and to add fibrosing agent. Patient was last seen by pulmonology in July 2022. She also saw rheumatology in August 2022. There was no clinical concern for active polymyalgia rheumatica. She was asked to follow-up with pulmonology. Medications/Allergies Home Medications Medication Instructions Recorded Confirmed Last Taken Type albuterol sulfate 90 mcg/actuation 2 puff inhalation Q6H PRN 02/13/22 01/17/23 Unknown History aerosol inhaler (ProAir HFA) Shortness Of Breath alprazolam 0.5 mg tablet (Xanax) 0.5 mg PO DAILY 02/13/22 01/17/23 01/17/23 History celecoxib 200 mg capsule (Celebrex) 200 mg PO DAILY 02/13/22 01/17/23 01/17/23 History gabapentin 300 mg capsule 300 mg PO DAILY 02/13/22 01/17/23 Unknown History hydrocodone 7.5 mg-acetaminophen 1 tab PO BID PRN Pain 02/13/22 01/17/23 Unknown History 325 mg tablet metoprolol succinate 50 mg 50 mg PO DAILY 02/17/22 01/17/23 01/17/23 History tablet,extended release 24 hr (Toprol XL) nitroglycerin 0.4 mg sublingual 0.4 mg sublingual Q5M PRN Chest 02/17/22 01/17/23 Unknown History tablet Pain omeprazole 20 mg capsule,delayed 20 mg PO DAILY 02/17/22 01/17/23 01/17/23 History release amlodipine 5 mg tablet 10 mg PO DAILY 06/09/22 01/17/23 01/17/23 History duloxetine 20 mg capsule,delayed 40 mg PO DAILY 06/09/22 01/17/23 01/17/23 History release trazodone 50 mg tablet 50 mg PO BEDTIME 06/09/22 01/17/23 01/16/23 History amoxicillin 500 mg capsule 500 mg PO TID 01/17/23 01/17/23 01/17/23 History fludrocortisone 0.1 mg tablet 0.1 mg PO DAILY 01/17/23 01/17/23 01/17/23 History Allergies Allergy/AdvReac Type Severity Reaction Status Date / Time ciprofloxacin [From Cipro] Allergy Intermediate ALGY-Joint Verified 08/11/22 13:35 Pain Iodinated Contrast Media Allergy Intermediate ALGY-Rash Verified 08/11/22 13:35 Sulfa (Sulfonamide Allergy Intermediate ALGY-Hives Verified 08/11/22 13:35 Antibiotics) Current Medications Generic Name Dose Route Start Last Admin Trade Name Freq PRN Reason Stop Dose Admin Sodium Chloride 1,000 mls @ 999 mls/hr 01/17/23 15:15 01/17/23 15:32 Sodium Chloride 0.9% IV 999 mls/hr .Q1H1M ALENA Administration PFSH Acute PFSH: Medical History (Updated 01/17/23 @ 17:05 by Palak Washburn MD) Acute anxiety Balance disorder BPPV (benign paroxysmal positional vertigo) History of COPD History of ear infections as a child Hx of polymyalgia rheumatica Hypertension Hypoxemic respiratory failure, chronic Hx of Covid 19 Hypoxemic respiratory failure, chronic ILD (interstitial lung disease) likely secondary her COVID 19 infection? 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 Transient confusion Urolithiasis Vasculitis Visual disturbance Surgical History History of hysterectomy with bilateral oophorectomy Previous back surgery x2 Family History Sister Lung disease 2021 ILD Father Cancer Denies family history of Rheumatoid arthritis Lupus Social History Smoking and tobacco status: never smoked Alcohol intake: never Vitals/I&O/Wt Last Vital Signs Temp 98.2 F 01/17/23 13:25 Pulse 73 01/17/23 14:32 Resp 16 01/17/23 14:32 BP 187/109 01/17/23 14:32 Pulse Ox 95 01/17/23 14:32 O2 Del Method 01/17/23 14:32 01/17/23 01/17/23 01/17/23 06:59 14:59 22:59 Intake Total 566.1 / 566.1 Balance 566.1 / 566.1 Weight last 48 hrs Weight 77.111 kg Physical Exam Narrative: General: Alert oriented x3, patient seen laying in bed with daughter at bedside. HEENT: Normocephalic, atraumatic, EOMI, breathing room air at this time. Cardio: Regular rate rhythm, normal S1-S2, Respiratory: Mild crepitus at bases bilaterally, no wheezes no rhonchi appreciated GI: Abdomen soft, nontender, nondistended, bowel sounds + Left flank tenderness present, punch test positive Behavior: Appropriate and cooperative Extremities: Trace generalized bilateral lower extremity edema. Data 01/17/23 14:11 01/17/23 15:17 A&P Assessment and plan (1) Nephrolithiasis: (2) Hx of polymyalgia rheumatica: (3) ILD (interstitial lung disease): (4) Restrictive lung disease: (5) Urinary tract infection: (6) Left ureteral calculus: (7) Urolithiasis: (8) SS-A antibody positive: (9) History of COPD: (10) Anxiety: Plan #Left ureteral calculus #UTI #Urolithiasis #Anxiety #Hypertension #Sjogren associated interstitial lung disease #Supplemental oxygen recommended at nighttime 2 L #History of PMR -DuoNeb every 4 hours as needed ? Check blood cultures, urine culture, lactic acid, procalcitonin ? Continue patient on Zosyn and de-escalate once culture data available ? Urology plans to take patient to the OR for stent placement emergently ? Patient did have a cardiac cath done in March 2022 which was nonischemic ? She does have Sjogren's related interstitial lung disease?. Recommended to have an HRCT and follow-up with pulmonology in 6 months. She may need lung biopsy and FibroScan needed at some point ? Continue supplemental oxygen as needed. She is supposed to be on 2 L at nighttime. She says even during the day sometimes she will need it but she does not wear it. She was discharged on 6 L and eventually transition down to 2 L ? I will hold amlodipine and fludrocortisone at this time ? Monitor blood pressure. If needed use hydralazine 5 IV every 4 hour ? Morphine 2 mg every 4 hours as needed for pain ? Continue Toprol 50 daily ? Continue omeprazole 20 daily ? Trazodone 50 at nighttime ? Xanax 0.5 as needed daily Full code DVT prophylaxis: SCDs for now. Will start on heparin SQ twice daily if okay with urology. Consult Attestations Medical Necessity Statement: Will cross greater than 2 midnight stay for management of left kidney stone and UTI. Diagnoses Nephrolithiasis N20.0 Hx of polymyalgia rheumatica Z87.39 ILD (interstitial lung disease) J84.9 Restrictive lung disease J98.4 Urinary tract infection N39.0 Left ureteral calculus N20.1 Urolithiasis N20.9 SS-A antibody positive R76.8 History of COPD Z87.09 Anxiety F41.9 Time Spent (min) 60
--- NOTE | 2023-01-17 17:00 | SC_ITS ---
WS: [id number] Exam: C-arm FL for Urology Date/Time of Exam: 01/17/2023 5:00 PM Reason For Exam: Left proximal ureteral stone, stent placement Limited anterior-posterior C-arm image of the left abdomen is submitted. The image depicts a retrograde pigtail catheter in the region of the left renal pelvis. There is cont rast in the calyceal structures of the left kidney. A lobulated filling defect is noted in the opacif ied lower left calyx and apparently represents a known stone in the left kidney. There is hardware pa rtially visualized in the lower lumbar spine. No other significant finding on this limited study.
[2023-01-17] MEDS: sodium chloride 0.9% 1,000 ML 30 ML IV (17:24)
[2023-01-17] MEDS: iohexol 300 mg/mL 50 mL Btl (OR ONLY) XX (17:24)
--- NOTE | 2023-01-17 17:37 | P.OP_ITS ---
Operative Report Date of procedure: January 17, 2023 Pre-op diagnosis: 1. Obstructing LEFT proximal ureteral stone 2. Refractory LEFT renal colic Post-op diagnosis: Same Procedure done: 1. Cystoscopy, LEFT retrograde ureteropyelogram 2. Left ureteral stent placement (7 Gabonese by 26 cm double-pigtail no string) Implants: Left ureteral stent Specimens removed/disposition: None Pathology: None Surgeon: Martin Estimated blood loss: None Urine output: Not measured Complications: None Findings: Anesthesia: General Condition: Stable Disposition: PACU Intraoperative findings: * High-grade obstruction of the left proximal ureteral stone. Large left lower pole stone was also easily identified * Required Glidewire to bypass the stone * Stent left indwelling. Confirmed to be functioning and in good position Brief History: Isaac is a very pleasant 72-year-old white female who I evaluated for the first today through the emergency department for severe refractory left renal colic, and obstructing 5 mm stone, nonobstructing almost 2 cm left lower pole stone, and concern for potential obstructive pyelonephritis possible early sepsis. Her lactate was mildly elevated. Her urine looked fairly bland. White count was high end of normal. Showed no systemic signs of hemodynamic instability Based on these concerns, and the fact that she had had symptoms now for probably close to 2 weeks with severe refractory symptoms over the last week it was recommended she undergo cystoscopy and stent placement, antibiotics, and delayed definitive treatment of the stone until infectious concerns addressed Procedure: After emergent evaluation examination and obtaining of informed consent she was taken to the operating suite on 01/17/2023 where general anesthesia was administered without difficulty after appropriate timeout was performed, SCDs confirmed to be functioning, preoperative antibiotics administered, beta-brigido protocol confirmed. Prepped and draped in usual sterile fashion in dorsolithotomy position paying careful attention to avoiding pressure points. 21 Gabonese cystoscope with 30 degree lens was introduced into the urethral meatus and advanced into the bladder without difficulty. The bladder was systematically examined. There is no signs of chronic infection. No stone. An 8 Gabonese cone-tip catheter was intubated into the left ureteral orifice for LEFT RETROGRADE URETEROPYELOGRAM demonstrating: Normal course and caliber of the ureter up into the very proximal aspect of the ureter there was distinct narrowing and very poor transit of contrast across this area into the lower pole calyx the stones could both be easily identified on fluoroscopy. A flexible tip guidewire was easily advanced up the left ureter but could not be manipulated easily beyond the stone. An open-ended ureteral catheter was advanced over the guidewire to below the stone but this did not facilitate easy passage of the wire. A Glidewire was then utilized and thankfully it was able to be manipulated beyond the stone into the area of the upper pole calyx. The opening ureteral catheter was then manipulated over the guidewire into the area of the renal pelvis the wire removed and contrast was reinjected demonstrating: Filling within the collecting system that was dilated. No extravasation or concerns. A sensor guidewire was then passed through the open-ended ureteral catheter curling in the upper pole calyx. A 7 Gabonese by 26 cm double-pigtail stent was advanced over the guidewire through the cystoscope into appropriate position as confirmed via fluoroscopy and cystoscopy. The stent was confirmed to be draining. The bladder was drained and the procedure was completed. She tolerated procedure well without complications and was awakened in the operating room and returned to the recovery room in stable condition. PLANS 1. Continue antibiotics and symptomatic control 2. Consider treatment with ESWL sooner than later if her infectious picture does not progress
--- NOTE | 2023-01-17 17:41 | ANE.PACU2 ---
Inpatient post-anesthesia follow up: Airway intact: Yes Vital signs: Temperature 97 F Pulse Rate 80 Respiratory Rate 16 Blood Pressure 133/77 Pulse Oximetry 94 Oxygen Delivery Me thod Room Air Oxygen Flow Rate Fraction of Inspir ed Oxygen Hydration adequate: Yes Nausea and vomiting: No Pain level: 2 Mental status: Baseline
[2023-01-17] MEDS: sodium chloride 0.9% 1,000 ML 75 ML IV (18:42)
[2023-01-17 19:34] LABS: Thyroid Stimulating Hormone 3.06 uIU/mL (0.27-4.20)
[2023-01-17 19:35] LABS: Procalcitonin 0.04 ng/mL (0-0.5)
[2023-01-17] MEDS: ipratropium-albuterol 3 mL Neb INHALATION (20:10)
[2023-01-17] MEDS: pantoprazole 40 mg SDV IVP (21:20)
[2023-01-17] MEDS: trazodone 50 mg Tablet PO (21:20)
[2023-01-17] MEDS: docusate sodium 100 mg Capsule PO (21:20)
[2023-01-17] MEDS: ALPRAZolam 0.5 mg Tablet PO (21:35)
[2023-01-18] VITALS (7 sets, daily range): BP systolic 108–127; BP diastolic 72–83; PULSE 67–95; RESP 16–18; TEMP 36.5–36.6; O2SAT 87–96
[2023-01-18] MEDS: sodium chloride 0.9% 1,000 ML 75 ML IV (02:44)
[2023-01-18 04:17] LABS: Basophils % 0.2 %; Hemoglobin 13.1 g/dL (11.5-15.3); Lymphocytes # 0.7 10^3/uL (0.8-4.8); Lymphocytes % 10.7 %; Mean Corpuscular HGB Conc 31.2 g/dL (30.0-36.0); Mean Corpuscular Hemoglobin 29.1 pg (28.0-34.0); Mean Corpuscular Volume 93.3 fl (81-99); Monocytes # 0.1 10^3/uL (0.2-0.9); Monocytes % 1.6 %; Neutrophils # 5.37 10^3/uL (1.8-7.7); Nucleated Red Blood Cells % 0 %; Platelet Count 263 10^3/cmm (130-400); White Blood Count 6.2 10^3/uL (4.0-10.0)
[2023-01-18 04:42] LABS: Alanine Aminotransferase 7 U/L (0-33); Albumin Level 3.8 g/dL (3.5-5.2); Alkaline Phosphatase 93 U/L (35-105); Anion Gap 14.8 (5-19); Aspartate Amino Transferase 15 U/L (0-32); Blood Urea Nitrogen 13 mg/dL (8-23); Calcium 9.3 mg/dL (8.5-10.5); Carbon Dioxide 27 mmol/L (22-29); Chloride 100 mmol/L (98-107); Glucose 215 mg/dL (65-115); Osmolality Calculated 293 mOsm/kg (285-295); Phosphorus 1.7 mg/dL (2.5-4.5); Potassium 3.8 mmol/L (3.5-5.1); Sodium 138 mmol/L (136-145); Total Bilirubin 0.3 mg/dL (0.15-1.2); Total Protein 6.8 g/dL (6.6-8.7)
[2023-01-18] MEDS: docusate sodium 100 mg Capsule PO (09:14)
[2023-01-18] MEDS: gabapentin 300 mg Capsule PO (09:15)
[2023-01-18] MEDS: duloxetine 20 mg Capsule 40 MG PO (09:15)
[2023-01-18] MEDS: metoprolol succinate ER (24 HR) 50 mg Tablet PO (09:15)
[2023-01-18] MEDS: pantoprazole DR 40 mg Tablet PO (09:15)
--- NOTE | 2023-01-18 09:17 | PM.PN ---
Subjective Subjective: seen today patient feels well she walked around the pugh today, o2 dropped to 83% and she had a panic attack and had to sit down she was not wearing oxygen at rest o2 sats are 97% on exertion she drops had ureteral stent placed yesterday Vitals/I&O/Wt Last Vital Signs Temp 97.8 F 01/18/23 05:42 Pulse 67 01/18/23 05:42 Resp 18 01/18/23 05:42 BP 127/83 01/18/23 05:42 Pulse Ox 96 01/18/23 05:42 O2 Del Method 01/17/23 20:23 01/17/23 01/18/23 01/18/23 22:59 06:59 14:59 Intake Total 2050.0 / 2050.0 602.5 / 2652.5 Output Total 900 / 900 Balance 1150.0 / 1150.0 602.5 / 1752.5 Weight last 48 hrs Weight 77.111 kg Physical Exam Narrative: General: Alert oriented x3, patient seen laying in bed with daughter at bedside. HEENT: Normocephalic, atraumatic, EOMI, breathing room air at this time. Cardio: Regular rate rhythm, normal S1-S2, Respiratory: Mild crepitus at bases bilaterally, no wheezes no rhonchi appreciated GI: Abdomen soft, nontender, nondistended, bowel sounds + Behavior: Appropriate and cooperative Extremities: Trace generalized bilateral lower extremity edema. Data 01/18/23 03:12 01/18/23 03:12 Micro: Microbiology 01/17/23 18:50 Blood Culture - Preliminary Blood SPECIMEN COLLECTED 01/17/23 18:23 Blood Culture - Preliminary Blood SPECIMEN COLLECTED A&P Assessment and plan (1) Nephrolithiasis: (2) Hx of polymyalgia rheumatica: (3) ILD (interstitial lung disease): (4) Restrictive lung disease: (5) Urinary tract infection: (6) Left ureteral calculus: (7) Urolithiasis: (8) SS-A antibody positive: (9) History of COPD: (10) Anxiety: Plan #Left ureteral calculus #UTI #Urolithiasis #Anxiety #Hypertension #Sjogren associated interstitial lung disease #Supplemental oxygen recommended at nighttime 2 L #History of PMR -DuoNeb every 4 hours as needed ? Check blood cultures, urine culture, lactic acid, procalcitonin ? Continue patient on Zosyn and de-escalate once culture data available ? Patient went to OR for stent placement. - Cultures are negative to date. - I would probably treat with augmentin x 7 days for presumed UTI. Patient had it diagnosed at previous hospital on thursday. ? Patient did have a cardiac cath done in March 2022 which was nonischemic ? She does have Sjogren's related interstitial lung disease?. Recommended to have an HRCT and follow-up with pulmonology in 6 months. She may need lung biopsy and fibrotic agent to be added at some point ? Continue supplemental oxygen as needed. She is supposed to be on 2 L at nighttime. She says even during the day sometimes she will need it but she does not wear it. She was discharged on 6 L and eventually transition down to 2 L ? Continue to hold amlodipine and fludrocortisone at discharge. She should monitor BP at home and take log sheet to primary care. ? Continue Toprol 50 daily ? Continue omeprazole 20 daily ? Trazodone 50 at nighttime ? Xanax 0.5 as needed daily - I would recommend patient have O2 eval at discharge and be sent home on oxygen. - She should follow up with pulmonology as previously scheduled. Full code DVT prophylaxis: SCDs for now. Attestations Medical Necessity Statement*: Defer to primary team Diagnoses Nephrolithiasis N20.0 Hx of polymyalgia rheumatica Z87.39 ILD (interstitial lung disease) J84.9 Restrictive lung disease J98.4 Urinary tract infection N39.0 Left ureteral calculus N20.1 Urolithiasis N20.9 SS-A antibody positive R76.8 History of COPD Z87.09 Anxiety F41.9
[2023-01-18] MEDS: ipratropium-albuterol 3 mL Neb INHALATION ×2 (09:30→11:35)
--- NOTE | 2023-01-18 10:45 | XRR_ITS ---
PROCEDURE INFORMATION: Exam: XR Abdomen Exam date and time: 01/18/2023 10:57 AM Age: 72 years old Clinical indication: Constipation; Additional info: Follow-up urolithiasis status post stent placement TECHNIQUE: Imaging protocol: Radiologic exam of the abdomen. Views: Frontal supine view of the abdomen. 1 View. COMPARISON: CT kidney stone [id number] 01/17/2023 2:16 PM FINDINGS: Tubes, catheters and devices: Left ureteral stent is in place. Gastrointestinal tract: No abnormal dilatation of the visualized bowel. Moderate amount of stool in the left colon with no abnormal distension of the rectum to suggest fecal impaction. Organs: There is stable 8 mm stone in the lower pole of the left kidney. Vasculature: There are stable phleboliths in the right pelvis. Bones/joints: Internal fixation within L3-L4 and L4-L5 disc spaces and between the spinous processes of L3 and L4. XR/XR KUB [id number] IMPRESSION: Stable 8 mm stone in the lower kaila of the left kidney. Left ureteral stent is in place. Moderate amount of stool in the left colon with no abnormal distension of the rectum to suggest fecal impaction.
[2023-01-18] MEDS: ALPRAZolam 0.5 mg Tablet PO (10:51)
[2023-01-18] MEDS: oxyCODONE-APAP 5-325 mg Tablet 1 TAB PO (10:54)
--- NOTE | 2023-01-18 12:58 | PM.DCS ---
Discharge Providers Date of Admission: 01/17/23 16:58 Date of Discharge: January 18, 2023 Attending Provider at Admission: Gavin Salazar MD Attending Provider at Discharge: Gavin Salazar MD Primary Care Provider: Ray Alvarez MD Diagnoses at Discharge Discharge Diagnosis (1) Left ureteral calculus: Details from hospital stay: 5 mm left UPJ stone with high-grade obstruction now migrated back into the lower pole with placement of stent yesterday. Status: Acute (2) Nephrolithiasis: Details from hospital stay: Large left lower pole stone Status: Acute (3) Hx of polymyalgia rheumatica: Status: Acute (4) ILD (interstitial lung disease): Status: Acute Permanent problem details: likely secondary her COVID 19 infection? (5) Restrictive lung disease: Status: Acute (6) Urolithiasis: Status: Acute (7) SS-A antibody positive: Status: Acute (8) History of COPD: Status: Acute (9) Anxiety: Status: Acute Reason for Visit Reason for Visit: Left ureteral stone with UTI Brief History: Presented to the emergency department on 01/17/2023 with complaints of 1 week of left renal colicky type symptoms described as severe and at times debilitating. Had already been seen at a local hospital and placed on antibiotics for UTI. Work-up in the ED showed an obstructing 5 mm left UPJ stone with severe hydronephrosis and an 8 to 9 mm left lower pole stone nonobstructing. She describes symptoms that were suspicious for UTI but her urine looked relatively bland. Her lactate level that was elevated and for that reason it was decided to take her to the operating room urgently for stent placement. Hospital Course Hospital Course Stent placement went well. It appeared that the stone had been pushed into the kidney and out of the ureter. She had no concerns regarding infectious progression while hospitalized. KUB on the following morning showed that the small stone had in fact moved into the left lower pole adjacent to the larger stone that was nonobstructing. Given her significant improvement and no evidence of progressive concerns she was discharged on postop day #1 in stable condition. We made plans to proceed with ESWL on 26 January. This will give her an opportunity to complete a course of antibiotics, stay off of the Celebrex for a week, and recover from this episode. Physical Exam Const: COMMON NORMALS: no acute distress, alert and well nourished GENERAL APPEARANCE: well kempt and well developed ORIENTATION/CONSCIOUSNESS: not confused HENMT: COMMON NORMALS: normocephalic HEAD & SCALP: normal to inspection and normocephalic Eye: COMMON NORMALS: no scleral icterus Neck/C-Spine: GENERAL: Yes normal visual inspection Chest: OTHER: Normal chest movement Resp: COMMON NORMALS: normal respiratory effort EFFORT & INSPECTION: Yes able to speak in complete sentences, No labored and No Actively coughing Cardio: COMMON NORMALS: regular rate and regular rhythm RATE: regular rate RHYTHM: regular rhythm : OTHER: Bladder nondistended Back/Pelvis: OTHER: Left CVA tenderness Neuro: COMMON NORMALS: no focal motor deficits SENSORIUM/ORIENTATION: Yes alert Psych: COMMON NORMALS: mental status grossly normal APPEARANCE: Yes grossly normal and Yes well kempt ATTITUDE: Yes calm and Yes engaged Skin: COMMON NORMALS: no rashes or lesions noted and no jaundice GENERAL SKIN EXAM: no rashes or lesions noted Discharge Data Studies Completed and Pending Completed Studies During Hospitalization Category Date Time Status CT kidney stone [id number] Stat Cat Scan 01/17/23 13:49 Completed XR KUB [id number] Routine Exams 01/18/23 10:45 Completed Pending at discharge Category Date Time Status C-arm FL for Urology Routine Exams 01/17/23 17:00 Taken Blood Culture Routine Lab 01/17/23 18:50 Results Sputum Culture and Gram Stain Stat Lab 01/17/23 17:08 Uncollected Radiology Impressions Abdomen/Pelvis CT 01/17/23 13:49 IMPRESSION: 1. There is a 4 mm x 5 mm calculus in the proximal left ureter with obstructive changes as described above. 2. 9 mm calculus in a lower pole calyx of the left kidney. KUB X-Ray 01/18/23 10:45 IMPRESSION: Stable 8 mm stone in the lower kaila of the left kidney. Left ureteral stent is in place. Moderate amount of stool in the left colon with no abnormal distension of the rectum to suggest fecal impaction. Laboratory Results WBC 6.2 10^3/uL (4.0-10.0) 01/18/23 03:12 RBC 4.50 10^6/uL (4.1-5.3) 01/18/23 03:12 Hgb 13.1 g/dL (11.5-15.3) 01/18/23 03:12 Hct 42.0 % (37.0-47.0) 01/18/23 03:12 MCV 93.3 fl (81-99) 01/18/23 03:12 MCH 29.1 pg (28.0-34.0) 01/18/23 03:12 MCHC 31.2 g/dL (30.0-36.0) 01/18/23 03:12 RDW 13.0 % (12.1-15.1) 01/18/23 03:12 Plt Count 263 10^3/cmm (130-400) 01/18/23 03:12 MPV 10.0 fL (7.4-10.4) 01/18/23 03:12 Neut % (Auto) 87.0 % 01/18/23 03:12 Lymph % (Auto) 10.7 % 01/18/23 03:12 [place] % (Auto) 1.6 % 01/18/23 03:12 Eos % (Auto) 0.0 % 01/18/23 03:12 Baso % (Auto) 0.2 % 01/18/23 03:12 Neut # (Auto) 5.37 10^3/uL (1.8-7.7) 01/18/23 03:12 Lymph # (Auto) 0.7 10^3/uL (0.8-4.8) L 01/18/23 03:12 [place] # (Auto) 0.1 10^3/uL (0.2-0.9) L 01/18/23 03:12 Eos # (Auto) 0.0 10^3/uL (0.0-0.8) 01/18/23 03:12 Baso # (Auto) 0.0 10^3/uL (0.0-0.1) 01/18/23 03:12 Nucleated RBC % (auto) 0 % 01/18/23 03:12 Nucleated RBCs # 0.0 /100WBC 01/18/23 03:12 Sodium 138 mmol/L (136-145) 01/18/23 03:12 Potassium 3.8 mmol/L (3.5-5.1) 01/18/23 03:12 Chloride 100 mmol/L (98-107) 01/18/23 03:12 Carbon Dioxide 27 mmol/L (22-29) 01/18/23 03:12 Anion Gap 14.8 (5-19) 01/18/23 03:12 BUN 13 mg/dL (8-23) 01/18/23 03:12 Creatinine 0.9 mg/dL (0.5-0.9) 01/18/23 03:12 GFR Calculation Not Reportable 01/18/23 03:12 Glucose 215 mg/dL (65-115) H 01/18/23 03:12 Calculated Osmolality 293 mOsm/kg (285-295) 01/18/23 03:12 Lactate 2.8 mmol/L (0.5-2.2) H 01/17/23 14:11 Calcium 9.3 mg/dL (8.5-10.5) 01/18/23 03:12 Phosphorus 1.7 mg/dL (2.5-4.5) L 01/18/23 03:12 Magnesium 2.0 mg/dL (1.7-2.3) 01/18/23 03:12 Total Bilirubin 0.3 mg/dL (0.15-1.2) 01/18/23 03:12 AST 15 U/L (0-32) 01/18/23 03:12 ALT 7 U/L (0-33) 01/18/23 03:12 Alkaline Phosphatase 93 U/L (35-105) 01/18/23 03:12 Total Protein 6.8 g/dL (6.6-8.7) 01/18/23 03:12 Albumin 3.8 g/dL (3.5-5.2) 01/18/23 03:12 Globulin 3.0 g/dL (1.3-4.6) 01/18/23 03:12 Lipase 14 U/L (13-60) 01/17/23 15:17 Procalcitonin 0.04 ng/mL (0-0.5) 01/17/23 18:50 TSH 3.06 uIU/mL (0.27-4.20) 01/17/23 18:50 Urine Color Straw (Yellow) 01/17/23 14:49 Urine Appearance Clear (CLEAR) 01/17/23 14:49 Urine pH 6.5 (5-7) 01/17/23 14:49 Ur Specific [place] 1.005 (1.005-1.030) 02/18/23 14:49 Urine Protein Neg (Negative) 01/17/23 14:49 Urine Glucose (UA) Norm (Normal) 01/17/23 14:49 Urine Ketones Negative (Negative) 01/17/23 14:49 Urine Blood 3+ (Negative) H 01/17/23 14:49 Urine Nitrate Negative (Negative) 01/17/23 14:49 Urine Bilirubin Neg (Negative) 01/17/23 14:49 Urine Urobilinogen Norm mg/dL (Negative) 01/17/23 14:49 Ur Leukocyte Esterase Negative (Negative) 01/17/23 14:49 Urine RBC 0-4 /hpf (0-2) H 01/17/23 14:49 Urine WBC 0-4 /hpf (0-5) H 01/17/23 14:49 Ur Squamous Epith Cells Rare /hpf (0-5) 01/17/23 14:49 Amorphous Sediment Not Reportable 01/17/23 14:49 Urine Bacteria Trace /hpf (NONE) 01/17/23 14:49 Vitals Last Vital Signs Temp 97.8 F 01/18/23 05:42 Pulse 95 01/18/23 11:44 Resp 18 01/18/23 11:37 BP 127/83 01/18/23 05:42 Pulse Ox 93 01/18/23 11:37 O2 Del Method 01/18/23 11:37 Discharge Plan Discharge Patient Disposition: Home Condition: Stable Prescriptions: New ondansetron HCl 4 mg tablet 4 mg PO Q8H PRN (Reason: nausea and vomiting) Qty: 14 1RF Continued gabapentin 300 mg capsule 300 mg PO DAILY hydrocodone-acetaminophen 7.5-325 mg tablet 1 tab PO BID PRN (Reason: Pain) albuterol sulfate [ProAir HFA] 90 mcg/actuation HFA aerosol inhaler 2 puff inhalation Q6H PRN (Reason: Shortness Of Breath) alprazolam [Xanax] 0.5 mg tablet 0.5 mg PO DAILY amlodipine 5 mg tablet 10 mg PO DAILY trazodone 50 mg tablet 50 mg PO BEDTIME omeprazole 20 mg capsule,delayed release(DR/EC) 20 mg PO DAILY metoprolol succinate [Toprol XL] 50 mg tablet extended release 24 hr 50 mg PO DAILY nitroglycerin 0.4 mg tablet, sublingual 0.4 mg sublingual Q5M PRN (Reason: Chest Pain) Rx Instructions: do not exceed 3 doses per episode duloxetine 20 mg capsule,delayed release(DR/EC) 40 mg PO DAILY amoxicillin 500 mg Capsule 500 mg PO TID fludrocortisone 0.1 mg tablet 0.1 mg PO DAILY Held celecoxib [Celebrex] 200 mg capsule 200 mg PO DAILY Hold Instructions: Resume on 01/27/23. Discharge Orders: Discharge Order (Routine); Ordered 01/18/23 Ordered By: Gavin Salazar Referrals: Ray Alvarez MD [Primary Care Provider] - Discharge Diet: Advance as tolerated Discharge Activity: Increase activity as tolerated Patient Instructions: Opioid Safety Activity Restrictions/Additional Instructions: 1. Complete your antibiotic course. 2. Use the Zofran as needed and pain medicine previously provided as needed. Can use regular Tylenol if pain medication is not required. Hold Celebrex until after your procedure scheduled 3. We will schedule ESWL to break the stones up on 01/26/2023. This will be performed as an outpatient procedure 4. We will contact you to confirm the arrival time for Thursday sometime on Thursday afternoon or evening. 5. Use laxatives beginning Thursday and Thursday in preparation for the procedure on Thursday the . On Thursday the please consume only clear liquids. Discharge Attestations Time Spent in Discharge Care*: greater than 30 min Quality Metrics Clinical Quality Measures [ No reported AMI, CVA or VTE this stay] Coding Level of Care Code Acute Code for g Fwd Diagnoses Left ureteral calculus N20.1 Nephrolithiasis N20.0 Hx of polymyalgia rheumatica Z87.39 ILD (interstitial lung disease) J84.9 Restrictive lung disease J98.4 Urolithiasis N20.9 SS-A antibody positive R76.8 History of COPD Z87.09 Anxiety F41.9
== END 2023-01-18 15:05 | disposition home or self-care (01) ==
LOC: ER 16:06 → OR 16:20 → MEDSURG 16:58
PROVIDERS: Internal Medicine; Admitting Provider Urology; Emergency Provider General Practice; PCP Radiology Neuroradiology; Visit Provider Urology
PROC: (CPT 50605; principal; 2023-01-17 17:00)
PROC: 0TJB8ZZ Inspection of Bladder, Via Natural or Artificial Opening Endoscopic (ICD-10-PCS; CPT 52000; 2023-01-17 17:00)
DX: N20.1 Calculus of ureter (principal); N23 Unspecified renal colic; Z87.39 Personal history of other diseases of the musculoskeletal system and connective tissue; J84.9 Interstitial pulmonary disease, unspecified; J98.4 Other disorders of lung; N20.9 Urinary calculus, unspecified; R76.8 Other specified abnormal immunological findings in serum; Z87.09 Personal history of other diseases of the respiratory system; F41.9 Anxiety disorder, unspecified; Z86.16 Personal history of COVID-19; I10 Essential (primary) hypertension
CPT/HCPCS: 52332; 36415; 74018; 74176; 76000; 80053; 81001; 83605; 83690; 83735; 84100; 84145; 84443; 85025; 87040; 94640; 94664; 94760; 96365; 96375; 99285; C9113; G0378; J0330; J0696; J1100; J1885; J2405; J2704; J3010; J7030; J7120

== ENCOUNTER 2023-01-26 05:48 | Day surgery (SDC) | payer MEDICARE, SELFPAY ==
[2023-01-23 15:06] VITALS: BMI 28.3
[2023-01-26] VITALS (10 sets, daily range): BP systolic 113–163; BP diastolic 74–97; PULSE 61–76; RESP 16–20; TEMP 36.2–36.3; O2SAT 93–97
--- NOTE | 2023-01-26 05:37 | P.HPUD_ITS ---
Surgery/Procedure H&P Update DATE OF PROCEDURE: January 26, 2023 DATE H&P PERFORMED: 01/17/23 H&P UPDATE INFORMATION: I have reviewed H&P completed within last 30 days, I have examined patient prior to procedure, Changes to prior documentation as noted here and H&P is in [facility] EMR on date indicated CHANGES TO PREVIOUS DOCUMENTATION: Stent placed while hospitalized 01/17/23 Treated with antibiotics as well. KUB shows the small stone that has been causing obstruction still in the same area as the larger LLP stone Reviewed again that it may take more than 1 treatment to completely fragment the stone into small pieces that she can pass PREOP DIAGNOSIS: ureteral calculus PLANNED PROCEDURE: Operation Date: 01/26/23 07:00 Proposed Procedures p LEFT RENAL EXTRACORPOREAL SHOCKWAVE LITHOTRIPSY 04456,N20.1(Left) - Gavin Salazar MD
--- NOTE | 2023-01-26 05:53 | XR_ITS ---
WS: [id number] KUB, AP view, 01/26/2023 Clinical Data: Preop left renal ESWL Comparison: KUB, 01/18/2023 Findings: There are calcifications overlying the midportion of the left kidney. There is a right ureteral stent in good position. The patient's had lumbar fusion surgery at the L3, L4and L5 levels. XR/XR KUB [id number] Impression: 1. Left renal calcifications. 2. Left ureteral stent.
--- NOTE | 2023-01-26 06:00 | ECG_ITS ---
[facility] Test Date: 2023-01-26 Pat Name: Clarisa Stanley Department: Room: Gender: Female Manager Trainee: : 1950 Requested By: Gavin Salazar Order Number: [id number] Gregory MD: Jean Akhtar M.D. 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 [id number]
[2023-01-26] MEDS: sodium chloride 0.9% 1,000 ML 30 ML IV (06:22)
--- NOTE | 2023-01-26 06:59 | P.ANESASSM_ITS ---
Documented by User: Chris David Jr, MECHANIC FOREMAN 01/26/23 07:02 Pre-Anesthetic Assessment Height/Weight: Height 1.65 m Weight 77.111 kg Temp Pulse Resp BP Pulse Ox O2 Del Method 97.4 F L 76 18 163/97 96 01/26/23 06:13 01/26/23 06:13 01/26/23 06:13 01/26/23 06:13 01/26/23 06:13 01/26/23 06:13 Preop Diagnosis: Left renal calculi Operation Date: 01/26/23 07:00 Proposed Procedures p LEFT RENAL EXTRACORPOREAL SHOCKWAVE LITHOTRIPSY 17860,N20.1(Left) - Gavin Salazar MD Was Beta Otto taken within 24 hours: N/A Was Clonidine taken within 24 hours: N/A Last intake: Intake Last Liquid Date 01/25/23 Last Liquid Time 22:00 Last Solid Date 01/24/23 Social No alcohol and No tobacco Exam alert, oriented x 3, clear to auscultation bilaterally and regular rate & rhythm Airway Submandibular: within normal limits Cervical ROM: within normal limits Mallampati: Class II Dentition: false History/ROS No significant history except as noted and No significant complaints Pulmonary Chronic Obstructive Pulmonary Disease and Exertional Dyspnea CV/HEM None reported Hepatic None reported GI Gastroesophageal Reflux Disease Metabolic None reported Musc/skel Osteoarthritis/DJD Neuropsych Anxiety Anesthetic Plan ASA status: 3 Anesthesia: Anesthesia Evaluation and General Risk of > 500 ml blood loss (7ml/kg in children): No Medications/Allergies Home Medications Medication Instructions Recorded Confirmed Last Taken Type albuterol sulfate 90 mcg/actuation 2 puff inhalation Q6H PRN 02/13/22 01/26/23 Unknown History aerosol inhaler (ProAir HFA) Shortness Of Breath alprazolam 0.5 mg tablet (Xanax) 0.5 mg PO DAILY 02/13/22 01/26/23 01/17/23 History gabapentin 300 mg capsule 300 mg PO DAILY 02/13/22 01/26/23 01/25/23 History . hydrocodone 7.5 mg-acetaminophen 1 tab PO BID PRN Pain 02/13/22 01/26/23 01/23/23 History 325 mg tablet metoprolol succinate 50 mg 50 mg PO DAILY 02/17/22 01/26/23 01/26/23 History tablet,extended release 24 hr (Toprol XL) nitroglycerin 0.4 mg sublingual 0.4 mg sublingual Q5M PRN Chest 02/17/22 01/26/23 Unknown History tablet Pain omeprazole 20 mg capsule,delayed 20 mg PO DAILY 02/17/22 01/26/23 01/25/23 History release amlodipine 5 mg tablet 10 mg PO DAILY 06/09/22 01/26/23 01/26/23 History duloxetine 20 mg capsule,delayed 40 mg PO DAILY 06/09/22 01/26/23 01/25/23 History release trazodone 50 mg tablet 50 mg PO BEDTIME 06/09/22 01/26/23 01/25/23 History ondansetron HCl 4 mg tablet 4 mg PO Q8H PRN nausea and 01/18/23 01/26/23 Unknown Rx vomiting #14 tabs Allergies Allergy/AdvReac Type Severity Reaction Status Date / Time ciprofloxacin [From Cipro] Allergy Intermediate ALGY-Joint Verified 01/26/23 06:10 Pain Iodinated Contrast Media Allergy Intermediate ALGY-Rash Verified 01/26/23 06:10 Sulfa (Sulfonamide Allergy Intermediate ALGY-Hives Verified 01/26/23 06:10 Antibiotics) Current Medications Generic Name Dose Route Start Last Admin Trade Name Freq PRN Reason Stop Dose Admin Sodium Chloride 1,000 mls @ 30 mls/hr 01/26/23 06:00 01/26/23 06:22 Sodium Chloride 0.9% IV 01/27/23 05:59 30 mls/hr .Q24H ALENA Administration PFSH Anesthesia Medical History (Updated 01/19/23 @ 00:14 by EMELY Olson) Acute anxiety Balance disorder BPPV (benign paroxysmal positional vertigo) History of COPD History of ear infections as a child Hx of polymyalgia rheumatica Hypertension Hypoxemic respiratory failure, chronic Hx of Covid 19 Hypoxemic respiratory failure, chronic ILD (interstitial lung disease) likely secondary her COVID 19 infection? 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 Transient confusion Urinary tract infection Urolithiasis Vasculitis Visual disturbance Surgical History History of hysterectomy with bilateral oophorectomy Previous back surgery x2 Family History Sister Lung disease 2021 ILD Father Cancer Denies family history of Rheumatoid arthritis Lupus Social History Smoking and tobacco status: never smoked Alcohol intake: never Data Anesthesia Cardiac Studies: No Data to Display Documented by User: Itz Mejia 01/26/23 08:04 Pre-Anesthetic Assessment Familial anesthetic complications: none Medications/Allergies Home Medications Medication Instructions Recorded Confirmed Last Taken Type albuterol sulfate 90 mcg/actuation 2 puff inhalation Q6H PRN 02/13/22 01/26/23 Unknown History aerosol inhaler (ProAir HFA) Shortness Of Breath alprazolam 0.5 mg tablet (Xanax) 0.5 mg PO DAILY 02/13/22 01/26/23 01/17/23 History gabapentin 300 mg capsule 300 mg PO DAILY 02/13/22 01/26/23 01/25/23 History . hydrocodone 7.5 mg-acetaminophen 1 tab PO BID PRN Pain 02/13/22 01/26/23 01/23/23 History 325 mg tablet metoprolol succinate 50 mg 50 mg PO DAILY 02/17/22 01/26/23 01/26/23 History tablet,extended release 24 hr (Toprol XL) nitroglycerin 0.4 mg sublingual 0.4 mg sublingual Q5M PRN Chest 02/17/22 01/26/23 Unknown History tablet Pain omeprazole 20 mg capsule,delayed 20 mg PO DAILY 02/17/22 01/26/23 01/25/23 History release amlodipine 5 mg tablet 10 mg PO DAILY 06/09/22 01/26/23 01/26/23 History duloxetine 20 mg capsule,delayed 40 mg PO DAILY 06/09/22 01/26/23 01/25/23 History release trazodone 50 mg tablet 50 mg PO BEDTIME 06/09/22 01/26/23 01/25/23 History ondansetron HCl 4 mg tablet 4 mg PO Q8H PRN nausea and 01/18/23 01/26/23 Unknown Rx vomiting #14 tabs Allergies Allergy/AdvReac Type Severity Reaction Status Date / Time ciprofloxacin [From Cipro] Allergy Intermediate ALGY-Joint Verified 01/26/23 06:10 Pain Iodinated Contrast Media Allergy Intermediate ALGY-Rash Verified 01/26/23 06:10 Sulfa (Sulfonamide Allergy Intermediate ALGY-Hives Verified 01/26/23 06:10 Antibiotics) [facility] Anesthesia Medical History (Updated 01/19/23 @ 00:14 by EMELY Olson) Acute anxiety Balance disorder BPPV (benign paroxysmal positional vertigo) History of COPD History of ear infections as a child Hx of polymyalgia rheumatica Hypertension Hypoxemic respiratory failure, chronic Hx of Covid 19 Hypoxemic respiratory failure, chronic ILD (interstitial lung disease) likely secondary her COVID 19 infection? 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 Transient confusion Urinary tract infection Urolithiasis Vasculitis Visual disturbance Surgical History History of hysterectomy with bilateral oophorectomy Previous back surgery x2 Family History Sister Lung disease 2021 ILD Father Cancer Denies family history of Rheumatoid arthritis Lupus Social History Smoking and tobacco status: never smoked Alcohol intake: never Data Anesthesia Cardiac Studies: No Data to Display
[2023-01-26] MEDS: ceFAZolin 2,000 MG in sodium chloride 0.9% (plus) 50 ML 100 MG IV (07:02)
--- NOTE | 2023-01-26 08:09 | P.OP_ITS ---
Operative Report Date of procedure: January 26, 2023 Pre-op diagnosis: 1. Status post emergency stenting for obstructive pyelonephritis on the left 2. 2 stones LLP Post-op diagnosis: Same Procedure done: 1. Extracorporeal shockwave lithotripsy left renal calculi Implants: Previously stented Specimens removed/disposition: None Pathology: None Surgeon: Martin Stitch Marker: Lithotripsy Multi Needle Machine Operator: Romulo Freitas Estimated blood loss: None Urine output: Not measured Complications: None Findings: Anesthesia: General Condition: Stable Disposition: PACU Intraoperative findings: * Stones easily focused upon with EXCELLENT change. * Shocks: 2500 * Previously placed stent left indwelling. Brief History: Clarisa is a delightful 72-year-old white female recently evaluated for an obstructing right proximal ureteral stone with evidence of infection. She underwent emergent stenting. She also had an additional stone a much larger stone measuring about 1.8 cm in the left lower pole. This obstructing stone measured about 5 mm at the left UPJ When stenting the stone popped into the kidney and dropped down into the lower pole next to the larger stone. She is being admitted now for attempt at definitive therapy via ESWL to treat both stones Procedure: After routine preoperative evaluation examination and obtaining of informed consent she was taken to the operating suite on 01/26/2023 where general anesthesia was administered without difficulty after appropriate timeout was performed, SCDs confirmed to be functioning, preoperative antibiotics administered, beta-brigido protocol confirmed. prepped and draped in usual sterile fashion in supine position paying careful attention to avoiding pressure points. The shock head was positioned posteriorly. Stones were easily identified and focused upon. Shockwave therapy was initiated a low intensity and a low rate of 60 and after about 300 shocks a 3-minute pause was conducted Intensity was gradually advanced to 4 Rate was increased after significant change demonstrated. By the completion of the procedure at 2500 shocks there were no fragments identified at all. She tolerated procedure well without complications and was awakened in the o perating room and returned to PACU in stable condition. PLANS: 1. Anticipate discharge from outpatient surgery today 2. Follow-up in 1 to 2 weeks with KUB first, possible cystoscopy stent removal
[2023-01-26] MEDS: ondansetron 4 MG Tablet PO (08:45)
[2023-01-26] MEDS: HYDROcodone-acetaminophen 5-325 mg Tablet 1 TAB PO (09:03)
--- NOTE | 2023-01-26 15:26 | ANE.PACU2 ---
Inpatient post-anesthesia follow up: Airway intact: Yes Vital signs: Temperature 97.1 F Pulse Rate 61 Respiratory Rate 16 Blood Pressure 144/83 Pulse Oximetry 95 Oxygen Delivery Me thod Room Air Oxygen Flow Rate Fraction of Inspir ed Oxygen Hydration adequate: Yes Nausea and vomiting: No Pain level: 2 Mental status: Baseline
== END 2023-01-26 09:20 | disposition home or self-care (01) ==
PROVIDERS: PCP Family Medicine; Visit Provider Urology
PROC: (CPT 50590; principal; 2023-01-26 07:00)
DX: N11.1 Chronic obstructive pyelonephritis (principal); J44.9 Chronic obstructive pulmonary disease, unspecified; K21.9 Gastro-esophageal reflux disease without esophagitis; M19.90 Unspecified osteoarthritis, unspecified site; F41.9 Anxiety disorder, unspecified; I10 Essential (primary) hypertension; Z86.16 Personal history of COVID-19
CPT/HCPCS: 50590; 74018; 93005; J0690; J1100; J2370; J2405; J2704; J3010; J3490; J7030; Q0162

== ENCOUNTER 2023-02-03 06:21 | Outpatient (CLI) | payer MEDICARE, SELFPAY | END 2023-02-03 06:22 | disposition home or self-care (01) | LOC: SLEEP 02-04 06:22 | PROVIDERS: PCP Family Medicine; Visit Provider Internal Medicine Pulmonary Disease | DX: G47.33 Obstructive sleep apnea (adult) (pediatric) (principal) | CPT/HCPCS: 95810 ==

== ENCOUNTER 2023-02-10 07:57 | Outpatient (CLI) | payer MEDICARE, SELFPAY ==
--- NOTE | 2023-02-10 08:09 | XR_ITS ---
WS: [id number] XR KUB [id number] REASON FOR EXAM: stones FINDINGS: Left ureteral stent in proper position. Compared to previous examination of 01/26/2023 there continues to be a partial staghorn calculus in th e lower pole of the left kidney, however it is more ill-defined at this point. No calculi are seen along the course of the ureteral stent. Previously demonstrated calculus at the l eft ureteral pelvic junction is not identifiable. No intrarenal calculi identified on the left. No other significant abnormality. XR/XR KUB [id number] IMPRESSION: Left ureteral stent with remnant left renal partial staghorn calculus.
== END 2023-02-10 07:58 | disposition home or self-care (01) ==
LOC: RAD 08:02
PROVIDERS: PCP Family Medicine; Visit Provider Urology
DX: Z96.0 Presence of urogenital implants (principal); N20.0 Calculus of kidney; Z87.440 Personal history of urinary (tract) infections
CPT/HCPCS: 74018; 99024

== ENCOUNTER → 2023-11-15 13:21 | Outpatient (BNVA) | payer MEDICARE, SELFPAY | PROVIDERS: PCP Family Medicine; Visit Provider Emergency Medicine | DX: R52 Pain, unspecified (principal); A08.4 Viral intestinal infection, unspecified | CPT/HCPCS: 87426 ==